=== PATIENT | male | born 1995 | race Two or more races ===

== ENCOUNTER 2021-02-26 11:51 | Emergency (ER) | payer SELFPAY ==
[~2021-02-26] VITALS: Ht 180.3 cm; Wt 81.6 kg
[2021-02-26] MEDS ORDERED: KETOROLAC TROMETH 60MG/2ML VIAL IM ONE (12:45)
[2021-02-26] MEDS ORDERED: TETANUS-DIPTH-ACEL PERTUSSIS 0.5ML SYR Tdap IM ONE (13:45)
[2021-02-26 15:00] VITALS: BP 139/91
[2021-02-26] MEDS ORDERED: HYDROcodone-ACET 10/325MG TAB PO ONE (15:30)
== END 2021-02-26 16:12 | disposition home or self-care (01) ==
LOC: ER 11:53
DX: S52.502A Unspecified fracture of the lower end of left radius, initial encounter for closed fracture (principal); S50.12XA Contusion of left forearm, initial encounter; F17.210 Nicotine dependence, cigarettes, uncomplicated; W18.39XA Other fall on same level, initial encounter; Y93.89 Activity, other specified; Y92.89 Other specified places as the place of occurrence of the external cause; Y99.8 Other external cause status
CPT/HCPCS: 29125; 73080; 73090; 73110; 90471; 90715; 96372; 99284; J1885

== ENCOUNTER 2021-03-05 18:40 | Emergency (ER) | payer SELFPAY ==
[~2021-03-05] VITALS: Ht 180.3 cm; Wt 81.6 kg
[2021-03-05 18:49] VITALS: BP 137/72
== END 2021-03-05 22:13 | disposition left against medical advice (07) ==
LOC: ER 18:44
DX: R22.32 Localized swelling, mass and lump, left upper limb (principal); Z53.21 Procedure and treatment not carried out due to patient leaving prior to being seen by health care provider